=== PATIENT | female | born 1945 | race African-American/Black ===

== ENCOUNTER 2022-02-12 03:41 | Emergency (ER) | payer MEDICAID, OTHER ==
[~2022-02-12] VITALS: Ht 162.6 cm; Wt 70.0 kg
[~2022-02-12 03:41] MED LIST: ADVAIR; ALBU6.7H9 IH; ASPI-1497 PO; BECL8.7H NS; COMBIV IH; CRES10 PO; DOCU250C14 GT; FERR220S12 PO; FORM0.5P MC; FURO-151 PO; HYDR-3927 GT; LEVO100T9 PO; LORA10CA PO; LORA1TAB PO; MONT10TA21 PO; NASOI NS; POTA20LI52 GT; PROT20 PO; PVCXPC PO; RANI300T7 PO; VERA80TA PO; ZITHROMAX
[2022-02-12] MEDS ORDERED: IPRATROPIUM BROMIDE (0.02%) 0.5MG/2.5ML NEB HHN STA (05:20)
[2022-02-12] MEDS ORDERED: DOXYCYCLINE HYCLATE 100 MG/VIAL IV ONE (05:30)
[2022-02-12] MEDS ORDERED: CEFTRIAXONE 1 G PREMIX 50 ML IV ONE (05:30)
[2022-02-12] MEDS ORDERED: SODIUM CHLORIDE 0.9% 1,000 ML IV ONE (05:30)
[2022-02-12 05:44] LABS: HEMATOCRIT. 32.1 % (36.0-48.0); HEMOGLOBIN. 10.4 g/dL (12.0-16.0); MEAN CORPUSCULAR HEMOGLOBIN 32.9 pg (28.0-32.0); MEAN PLATELET VOLUME 7.6 fl (7.4-10.4); PLATELET 220 x1000/uL (130-400); RED BLOOD CELL COUNT 3.15 mill/uL (4.2-5.4)
[2022-02-12] MEDS ORDERED: DOXYCYCLINE 100MG in DEXTROSE 5% WATER 100ML IV NR (05:45)
[2022-02-12 05:59] LABS: CHLORIDE 106 mEq/L (98-107)
[2022-02-12] MEDS: ALBUTEROL (0.083%) 2.5MG/3ML NEB HHN SCH ×4 (06:17→06:33)
[2022-02-12] MEDS ORDERED: PREDNISONE 20MG TABLET PO NR (06:30)
[2022-02-12 06:57] LABS: PLATELET ESTIMATE NORMAL
[2022-02-12] MEDS ORDERED: HYDROCODONE/ACETAMINOPHEN 10/325MG TABLET PO ONE (08:15)
[2022-02-12] MEDS ORDERED: SODIUM CHLORIDE 0.9% 500 ML IV ONE (08:15)
[2022-02-12 09:31] VITALS: BP 175/89
== END 2022-02-12 11:02 | disposition short-term general hospital (02) ==
LOC: ER 03:41
DX: J18.9 Pneumonia, unspecified organism (principal); J96.01 Acute respiratory failure with hypoxia; R00.0 Tachycardia, unspecified; N17.9 Acute kidney failure, unspecified; D72.825 Bandemia; J44.9 Chronic obstructive pulmonary disease, unspecified; Z88.8 Allergy status to other drugs, medicaments and biological substances; Z79.82 Long term (current) use of aspirin
CPT/HCPCS: 36415; 71045; 80053; 83605; 83880; 84484; 85025; 87040; 87426; 93005; 94640; 96361; 96365; 96367; 99285; J0696; J3490; J7030; J7060; J7512